=== PATIENT | male | born 1955 | race Caucasian/White ===

== ENCOUNTER → 2021-04-05 | Outpatient (CLI) | payer MEDICARE ==
[~2021-04-05] MED LIST: ALPR1TAB3 PO; ASPI81TA86 PO; ATEN50TA2 PO; ATOR40TA75 PO; MIRA3350 PO; OMEP40CA97 PO; PERC5TAB12 PO; ROBA750T4 PO; SPIR1TAB34 PO; TRIA2TA PO
--- NOTE | 2021-04-07 18:54 | HOLTMON ---
[facility] Test Date: 2021-04-05 Pat Name: MAYA KAPADIA Department: Room: - Gender: Male Voice Network Engineer: favian : 1955 Requested By: ELIZA NAIR Order Number: [id number] Reading MD: Nathaniel Masterson Interpretive Statements Normal sinus rhythm with a maximum heart of 100 bpm noted at 11:50:39 AM and a minimum rate of 43 bpm at 5:39:58 AM. No activity reported with the maximum heart rate. No pause. Very rare isolated PACs. No supraventricular run. No PVCs. Symptoms: Palpitations, no associated arrhythmias. Electronically Signed on 04-07-2021 18:54:11 EDT by Nathaniel Masterson
== END ==
LOC: M EKG 09:59
PROVIDERS: ATTEND Family Medicine
DX: R00.2 Palpitations (principal)

== ENCOUNTER → 2021-04-17 | Outpatient (CLI) | payer MEDICARE ==
[~2021-04-17] MED LIST changes: +ISOVUE-370 76% 100ML VIAL As Ordered ONE
--- NOTE | 2021-04-17 11:44 | REP ---
INDICATION: PULSITILE TINITIS W/ REYNA'S. Other visual disturbances. COMPARISON: Comparison CT study of the neck with IV contrast 22 September 2011.. TECHNIQUE: CT contrast dose: 100 ml of intravenous Isovue 370. CT technique: Helical scanning is acquired. 2 mm axial images are reformatted. Maximal intensity projection and multiplanar re-formation images are generated along with 3-D surface rendered color imaging which is viewed rotational. FINDINGS: There is good opacification of the arterial tree. The vertebral arteries are patent bilaterally although the right vertebral artery is quite a bit smaller than the left. Basilar artery is widely patent. Posterior cerebral and superior cerebellar arteries are patent. The distal internal carotid arteries are unremarkable and symmetric. No significant plaquing is seen. The right A1 segment is hypoplastic compared to the left but the anterior cerebral arteries are patent bilaterally. Middle cerebral arteries are unremarkable. There is no evidence of hawthorne aneurysm or arteriovenous malformation. The dural sinuses are patent. No venous abnormality is appreciated. The vertebral artery asymmetry is unchanged from the 2011 study. Maximum intensity projection and 3D surface rendered images show no additional abnormality. IMPRESSION: Left dominant asymmetric vertebral arteries. Otherwise unremarkable CT angiography of the brain. <Electronically signed by Vikash Gerardo > 04/17/21 [id number]
--- NOTE | 2021-04-17 13:47 | REP ---
INDICATION: PULSITILE TINITIS W/ REYNA'S COMPARISON: Comparison CT study of the neck is from September 22, 2011. TECHNIQUE: Contrast enhancement dose is 100 mL of intravenous Isovue 370. Helical scanning is acquired. 2 mm axial images are re-formatted. Coronal and sagittal MPR images are generated. Coronal and sagittal MIP and oblique MPR images are generated. 3D surface rendered images are generated and viewed rotationally. FINDINGS: There is good opacification of the arterial tree. Aortic arch is unremarkable. Great vessel origins are intact. Cervical vertebral arteries are patent bilaterally and essentially symmetric. Distally, the right vertebral artery is smaller. No focal stenosis is seen. The common carotid arteries are patent bilaterally. There is no significant atherosclerotic plaquing at the carotid bifurcations. No ICA narrowing is seen. The cervical and distal internal carotid arteries are unremarkable and symmetric. Maximum intensity projection and surface rendered 3D images show no additional finding. IMPRESSION: No high-grade stenosis or occlusion seen. <Electronically signed by Vikash Gerardo > 04/17/21 1546
== END ==
LOC: M RAD 09:16
PROVIDERS: ATTEND Physician Assistant Medical
DX: H93.A3 Pulsatile tinnitus, bilateral (principal); H53.8 Other visual disturbances; R51.9 Headache, unspecified
CPT/HCPCS: 70496; 70498; Q9967

== ENCOUNTER → 2021-04-22 | Outpatient (CLI) | payer MEDICARE ==
[~2021-04-22] MED LIST changes: -ISOVUE-370 76% 100ML VIAL As Ordered ONE
--- NOTE | 2021-04-25 00:45 | ECWPNPC ---
PATIENT NAME: MAYA KAPADIA : 1955 GENDER: MALE VISIT DATE: 04/22/2021 DISCHARGE DATE: 04/22/21 1350 VISIT LOCKED DATE TIME: PHYSICIAN: XI RODRIGUEZ RESOURCE: XI RODRIGUEZ REASON FOR APPOINTMENT 1. NECK PAIN HISTORY OF PRESENT ILLNESS DEPRESSION SCREENING: PHQ-2 (2015 EDITION) LITTLE INTEREST OR PLEASURE IN DOING THINGS?NOT AT ALL FEELING DOWN, DEPRESSED, OR HOPELESS?NOT AT ALL TOTAL SCORE0 GENERAL: PLEASANT 66-YEAR-OLD GENTLEMAN BEING SEEN TODAY PER REFERRAL OF [facility] FOR PERSISTENT NECK PAIN. PATIENT STATES HE SUFFERS FROM GENERALIZED BODY PAIN. REPORTS PERIODIC EPISODES OF SEVERE PAIN MAINLY AFTER HE HAS OVER DONE. HE IS QUITE ACTIVE. HE IS IN NO DISTRESS TODAY. SUFFERS FROM SEVERE ANXIETY. REPORTS HE WALKS ON A DAILY BASIS. HAD A SEVERE INCREASE IN NECK PAIN AFTER LIFTING 8 POUND WEIGHTS WHILE EXCERSISING A FEW WEEKS AGO. DENIES BOWEL INCONTINENCE OR URINARY INCONTINENCE. DENIES SUDDEN WEIGHT LOSS. DENIES RECENT INJURIES. STATES HE HAD MRIS OF HIS NECK AND LOW BACK BUT WE DON'T HAVE THOSE FOR REVIEW. - - -. FALL RISK SCREENING: SCREENING : NO FALLS REPORTED IN THE LAST YEAR , : NO FALLS REPORTED IN THE LAST YEAR. PAIN SCREENING: PATIENT HAS A COMPLAINT OF ACUTE OR CHRONIC PAIN :YES LOCATION OF PAIN:NECK INTENSITY OF PAIN (SCALE OF 1 TO 10):3 WHAT DOES YOUR PAIN FEEL LIKE:TENDER, SORE DURATION:CONTINOUS, CONSTANT, ALL DAY PAIN IS INCREASED BY:ACTIVITIES LIFTING THINGS PAIN IS DECREASED BY:OTHERS TENS UNIT, HEAT AND ICE NURSING NOTE: - - -. PAIN CENTER INTAKE QUESTIONS: DO YOU HAVE A HISTORY OF MRSA? :NO DO YOU TAKE A BLOOD THINNERS? :NO DO YOU HAVE ANY BLEEDING DISORDERS? :NO ANY NEW NUMBNESS OR WEAKNESS IN YOUR LEGS OR ARMS? :NO NUMBESS IN LEFT HANDS? FINGER AND LEFT LEG IN TOES ANY PACEMAKER,DEFIBRILLATOR, OR DORSAL COLUMN STIMULATOR? :NO DO YOU HAVE ANY RASHES OR OPEN SORES? :NO ARE YOU ALLERGIC TO IV DYE? :NO ARE YOU DIABETIC? :NO PRE DIABETIC ANY NEW PROBLEMS WITH YOUR MEDICATIONS? :NO HAVE YOU RECEIVED A VACCINE IN THE PAST 30 DAYS? :NO 2ND COVID 01/19/2021 DO YOU PLAN TO RECEIVE A VACCINE IN THE NEXT 21 DAYS? :NO DO YOU NEED ANY PRESCRIPTION? :NO DO YOU TAKE ANY IMMUNOSUPPRESSIVE MEDICATIONS? :NO IS THERE A CHANCE YOU COULD BE ? :NO ARE YOU BREAST FEEDING? :NO CURRENT MEDICATIONS TAKING LIPITOR 30MG ORAL THREE DAYS A WEEK TAKING AMITRIPTYLINE HCL 25 MG TABLET 1 TABLET AT BEDTIME ORALLY ONCE A DAY TAKING XANAX 1 MG TABLET 1 TABLET ORALLY TWICE A DAY, NOTES: PRN TAKING ATENOLOL 50 MG TABLET 1 TABLET ORALLY ONCE A DAY TAKING PRILOSEC OTC 20 MG TABLET DELAYED RELEASE 1 TABLET 30 MINUTES BEFORE MORNING MEAL ORALLY ONCE A DAY TAKING GABAPENTIN 100 MG CAPSULE 1 CAPSULE ORALLY ONCE A DAY TAKING SPIRONOLACTONE-HCTZ 25-25 MG TABLET 1 TABLET ORALLY ONCE A DAY TAKING TYLENOL 1000MG 1 TAB ORALLY TID TAKING CLARITIN 10 MG TABLET 1 TABLET ORALLY ONCE A DAY TAKING PERPHENAZINE 2 MG TABLET 1 TABLET ORALLY FOUR TIMES A DAY TAKING ROBAXIN-750 750 MG TABLET 1 TABLET ORALLY EVERY 4 HRS TAKING VITAMIN D 25 MCG (1000 UT) TABLET 1 TABLET ORALLY ONCE A DAY TAKING VITAMIN C 500 MG CAPSULE DIRECTED ORALLY TAKING MAGNESIUM GLYCINATE PLUS MEDICATION LIST REVIEWED AND RECONCILED WITH THE PATIENT PAST MEDICAL HISTORY PULSATILE TINNITUS CHRONIC NECK PAIN OCCIPITAL PAIN BILATERAL SHOULDER PAIN CHRONIC NUMBNESS IN FINGERS LEFT CHEST PAIN- DYSPENA WITH PANIC LUMBAR DDD ANXIETY AGORAPHOBIA ALLERGIES PENICILLIN: HIVES - SIDE EFFECTS L ARGININE: HEADACHE - SIDE EFFECTS SURGICAL HISTORY TONSILSL REMOVED 20 YEARS AGO TESICLES REMOVED 20 YEARS AGO FAMILY HISTORY FATHER: 91 YRS MOTHER: ALIVE 93 YRS SIBLINGS: ALIVE DAUGHTER(S): ALIVE 1 BROTHER(S) , 1 SISTER(S) - HEALTHY. 1DAUGHTER(S) - HEALTHY. SOCIAL HISTORY GENERAL: TOBACCO USE ARE YOU A:FORMER SMOKER 40 YEARS LATEX QUESTIONNAIRE LATEX ALLERGY : HAVE YOU EVER DEVELOPED ANY TYPE OF REACTION AFTER HANDLING LATEX PRODUCTS SUCH RUBBER GLOVES, CONDOMS, DIAPHRAGMS, BALLOONS, SOCKS, OR UNDERWEAR?NO LATEX ALLERGY : HAVE YOU EVER DEVELOPED ANY TYPE OF REACTION DURING OR AFTER DENTAL APPOINTMENT, VAGINAL/RECTAL EXAMINATION, SURGICAL PROCEDURE, OR ANY OTHER EXPOSURE?NO LATEX RISK : HAVE YOU EVER HAD ANY DIFFICULTY BREATHING OR HIVES AFTER EATING OR HANDLING ANY FRUITS, OR VEGETABLES; SUCH KIWI, BANANAS, STONE FRUITS, OR CHESTNUTSNO LATEX RISK : DO YOU HAVE A PREVIOUS PERSONAL HISTORY OF MORE THAN NINE SURGERIES, SPINA BIFIDA, OR REPEATED CATHERIZATIONS? NO LATEX RISK : ARE YOU FREQUENTLY EXPOSED TO LATEX PRODUCTS IN YOUR OCCUPATION?NO DATE ASKED : 04/22/2021 ALCOHOL USE: NO. RECREATIONAL DRUG USE DRUG USE?NO LANGUAGE LANGUAGES SPOKEN:JAMA[place] LEARNING BARRIERS / SPECIAL NEEDS BARRIERS TO LEARNING?NO HEARING IMPAIRED?NO LOST HEARING IN THE LEFT EARING VISION IMPAIRED?YES :CORRECTIVE LENSES COGNITIVELY IMPAIRED?NO LEARNING PREFERENCES?YES :DEMONSTRATION/VERBAL INSTRUCTION LEARNING CAPABILITIES PRESENT?YES EMOTIONAL BARRIERS?NO SPECIAL DEVICES?YES :CANE NEEDED CONTROL AREA OPERATOR NEEDED?NO HOSPITALIZATION/MAJOR DIAGNOSTIC PROCEDURE BACK PAIN SPEND 2 DAYS 6 YEARS AGO REVIEW OF SYSTEMS CONSTITUTIONAL: ANY RECENT FEVER NO . CHILLS NO . WEIGHT CHANGE OF UNKNOWN REASONS NO . GASTROENTEROLOGY: NEW UNEXPLAINABLE CHANGES IN BOWEL CONTROL NO . CONSTIPATION NO . GENITOURINARY: ANY NEW CHANGE IN BLADDER CONTROL? NO . NEUROLOGY: NEW ONSET DIZZINESS OR NEUROLOGICAL CHANGES NOT MENTIONED NO . NEW NUMBNESS OR PAIN PATTERNS NOT MENTIONED AND PERTINENT TO TODAY'S VISIT NO . CARDIOLOGY: NEW CHEST PRESSURE NO . PATIENT DENIES NO . RESPIRATORY: UNEXPLAINABLE COUGH NO . NEW SHORTNESS OF BREATH NO . VITAL SIGNS WT 291 LBS, HT 6'1, BMI 39.46 INDEX, BP 140/73 MM HG, HR 50 /MIN, RR 18 /MIN, TEMP 98.2 F, OXYGEN SAT % 97, SAFE IN ENV? (Y/N) YEST.ERIKA DAVISON. EXAMINATION GENERAL EXAMINATION: GENERALNO ACUTE DISTRESS, WELL NOURISHED AND HYDRATED. PSYCHAPPROPRIATE MOOD AND AFFECT . FACE:UNREMARKABLE. NECK:NO LYMPHADENOPATHY, SUPPLE. LUNGS:CLEAR TO AUSCULTATION BILATERALLY, NO WHEEZES, RHONCHI, RALES. HEART:NO MURMURS, REGULAR RATE AND RHYTHM. MUSCULOSKELETAL:NORMAL RANGE OF MOTION. MUSCLE STRENGTH TESTING 5/5 BILATERAL UPPER/LOWER EXTREMITIES. THORACIC SPINE:+ FOR PAIN WITH PALPATION OF THORACIC SPINE. + FOR PAIN WITH PALPATION OF THORACIC PARASPINAL. CERVICAL:+ FOR PAIN WITH PALPATION OF CERVICAL SPINE. + FOR PAIN WITH PALPATION OF CERVICAL PARASPINALS. NEGATIVE FOR PAIN WITH PALPATION OF TRAPEZIUS BILAT. ASSESSMENTS MYALGIA, OTHER SITE - M79.18 (PRIMARY) GENERALIZED JOINT PAIN - M25.50 TREATMENT MYALGIA, OTHER SITE START MELOXICAM TABLET, 7.5 MG, 1 TABLET, ORALLY, BID, 30 DAY(S), 60 TABLET, REFILLS 2 NOTES: ISTOP REGISTRY REVIEWED AND DEMONSTRATES COMPLLIANCE. PRINTED INFORMATION ON NEW MEDICATION FOR PATIENT JESSE SAMAN. PROCEDURE CODES [id number] ESTABILISHED PATIENT [facility] FACILITY CHARGE DISPOSITION & COMMUNICATION FOLLOW UP SIGN RELEASE AND GET MRI IMAGING NECK,THORACIC AND LUMBAR, 2 MONTHS (REASON: REVIEW MRI'S FROM [facility]/F/U ON [facility]) ELECTRONICALLY SIGNED BY KARSTEN VILLALOBOS ON 04/24/2021 AT 09:26 AM EDT DISCLAIMER : THIS IS A VISIT SUMMARY EXTRACTED FROM THE [employer] CHART. IT IS NOT A COPY OF THE [employer] PROGRESS NOTE. HARISD
== END ==
LOC: M PAIN 13:00
PROVIDERS: ATTEND Nurse Practitioner Family
DX: M79.18 Myalgia, other site (principal); M25.551 Pain in right hip; H93.A9 Pulsatile tinnitus, unspecified ear; M54.2 Cervicalgia; M25.552 Pain in left hip; R20.2 Paresthesia of skin; M51.36 Other intervertebral disc degeneration, lumbar region; F40.00 Agoraphobia, unspecified; F41.9 Anxiety disorder, unspecified; Z87.891 Personal history of nicotine dependence; Z79.899 Other long term (current) drug therapy; Z88.0 Allergy status to penicillin; Z88.8 Allergy status to other drugs, medicaments and biological substances

== ENCOUNTER 2021-10-28 10:09 | Emergency (ER) | payer MEDICARE ==
[~2021-10-28] VITALS: Ht 185.4 cm; Wt 129.6 kg
[~2021-10-28 10:09] MED LIST changes: +OMEP40CA4 PO; -OMEP40CA97 PO
[2021-10-28] MEDS ORDERED: CLAR10CA3 PO (10:40)
[2021-10-28] MEDS ORDERED: LANS15CA PO (10:40)
[2021-10-28] MEDS ORDERED: AMIT25TA17 PO (10:40)
[2021-10-28] MEDS ORDERED: PERP2TAB PO (10:40)
[2021-10-28] MEDS ORDERED: ALLE4TAB11 PO (10:40)
[2021-10-28 11:50] LABS: BASO % 0.6 % (0.0-1.0); EOS # 0.1 10^3/uL (0.0-0.5); EOS % 2.4 % (0.0-3.0); HEMATOCRIT 43.3 % (42.0-52.0); HEMOGLOBIN 13.8 g/dl (13.5-17.5); LYMPH # 1.7 10^3/uL (1.5-5.0); LYMPH % 30.9 % (24.0-44.0); MEAN CORPUSCULAR HGB CONC 31.9 g/dl (32.0-36.5); MEAN CORPUSCULAR VOLUME 81.7 fl (80.0-96.0); MONO # 0.5 10^3/uL (0.0-0.8); MONO % 8.9 % (2.0-8.0); NEUTROPHILS # 3.1 10^3/uL (1.5-8.5); NEUTROPHILS % 56.8 % (36.0-66.0); PLATELET COUNT, AUTOMATED 143 10^3/uL (150-450); WHITE BLOOD COUNT 5.4 10^3/uL (4.0-10.0)
[2021-10-28 12:18] LABS: ALBUMIN 3.5 GM/DL (3.2-5.2); BILIRUBIN,TOTAL 0.4 MG/DL (0.2-1.0); CALCIUM LEVEL 8.5 MG/DL (8.8-10.2); CREATININE FOR GFR 1.32 MG/DL (0.70-1.30); GLOMERULAR FILTRATION RATE 57.8 (>49); POTASSIUM SERUM 3.7 MEQ/L (3.5-5.1); TOTAL PROTEIN 6.2 GM/DL (6.4-8.2)
[2021-10-28 14:59] LABS: CK-MB VALUE MASS < 1.0 NG/ML (<3.6); CPK CREATINE PHOSPHOKINASE 84 U/L (39-308); MB/CK RELATIVE INDEX 1.19 (< OR =4)
[2021-10-28 15:23] VITALS: BP 134/83
== END 2021-10-28 15:24 | disposition home or self-care (01) ==
LOC: M ED 10:09
DX: R42 Dizziness and giddiness (principal); R55 Syncope and collapse; S09.90XA Unspecified injury of head, initial encounter; W01.0XXA Fall on same level from slipping, tripping and stumbling without subsequent striking against object, initial encounter; Y92.9 Unspecified place or not applicable; Y93.9 Activity, unspecified; Y99.9 Unspecified external cause status; I10 Essential (primary) hypertension; Z79.899 Other long term (current) drug therapy

== ENCOUNTER → 2022-09-22 | Outpatient (CLI) | payer MEDICARE ==
[~2022-09-22] MED LIST changes: +ALLE4TAB11 PO; +AMIT25TA17 PO; +CLAR10CA3 PO; +LANS15CA PO; +PERP2TAB20 PO
== END ==
LOC: M RAD 07:26
PROVIDERS: ATTEND Pain Medicine Interventional Pain Medicine
DX: M47.817 Spondylosis without myelopathy or radiculopathy, lumbosacral region (principal)

== ENCOUNTER → 2022-10-10 | Outpatient (CLI) | payer MEDICARE ==
[~2022-10-10] MED LIST changes: +PROHANCE 279.3MG/ML 15ML VIAL As Ordered ONE; +PROHANCE 279.3MG/ML 5ML VIAL As Ordered ONE
== END ==
LOC: M RAD 09:43
PROVIDERS: ATTEND Nurse Practitioner Family
DX: G35 Multiple sclerosis (principal)
CPT/HCPCS: 70553; 76775; A9576

== ENCOUNTER → 2022-10-10 | Outpatient (CLI) | payer MEDICARE ==
[~2022-10-10] MED LIST changes: -PROHANCE 279.3MG/ML 15ML VIAL As Ordered ONE; -PROHANCE 279.3MG/ML 5ML VIAL As Ordered ONE
== END ==
LOC: M RAD 09:43
PROVIDERS: ATTEND Family Medicine
DX: N28.1 Cyst of kidney, acquired (principal)

== ENCOUNTER → 2022-11-10 | Outpatient (CLI) | payer MEDICARE ==
[2022-11-10 17:13] LABS: BLOOD UREA NITROGEN 13 MG/DL (9-23); CARBON DIOXIDE LEVEL 31 MMOL/L (20-31); CHLORIDE LEVEL 101 MMOL/L (98-107); CREATININE FOR GFR 1.15 MG/DL (0.70-1.30); GLOMERULAR FILTRATION RATE > 60.0 (>49); GLUCOSE, FASTING 113 MG/DL (74-106); POTASSIUM SERUM 4.2 MMOL/L (3.5-5.1); SODIUM LEVEL 139 MMOL/L (136-145)
== END ==
LOC: M WUC 14:03
PROVIDERS: ATTEND Family Medicine
DX: I10 Essential (primary) hypertension (principal)

== ENCOUNTER → 2022-11-19 | Outpatient (CLI) | payer MEDICARE ==
[~2022-11-19] MED LIST changes: +PROHANCE 279.3MG/ML 15ML VIAL As Ordered ONE; +PROHANCE 279.3MG/ML 5ML VIAL As Ordered ONE
== END ==
LOC: M RAD 08:34
PROVIDERS: ATTEND Family Medicine
DX: N28.1 Cyst of kidney, acquired (principal)
CPT/HCPCS: 74183; A9576

== ENCOUNTER → 2022-12-12 | Outpatient (CLI) | payer MEDICARE ==
[~2022-12-12] MED LIST changes: -PROHANCE 279.3MG/ML 15ML VIAL As Ordered ONE; -PROHANCE 279.3MG/ML 5ML VIAL As Ordered ONE
== END ==
LOC: M WHC 12:12
PROVIDERS: ATTEND Family Medicine
DX: M79.604 Pain in right leg (principal)

== ENCOUNTER → 2023-01-06 | Outpatient (CLI) | payer MEDICARE ==
[~2023-01-06] MED LIST changes: +ACET-897 PO; +ASPI325T55 PO; +CO Q10CA PO; +FLON1SPR; +METH-1165 PO; +OCUV1CAP4 PO; +PROBCAP14 PO; +VITA200048 PO; +VITMTA PO
[2023-01-06 08:37] LABS: HEMATOCRIT 42.7 % (42.0-52.0); HEMOGLOBIN 13.5 g/dl (13.5-17.5); MEAN CORPUSCULAR HEMOGLOBIN 26.2 pg (27.0-33.0); MEAN CORPUSCULAR HGB CONC 31.6 g/dl (32.0-36.5); MEAN CORPUSCULAR VOLUME 82.8 fl (80.0-96.0); PLATELET COUNT, AUTOMATED 152 10^3/uL (150-450); RED BLOOD COUNT 5.16 10^6/uL (4.30-6.10); WHITE BLOOD COUNT 4.9 10^3/uL (4.0-10.0)
[2023-01-06 08:37] LABS: APPEARANCE, URINE MANUAL CLEAR (CLEAR); COLOR, URINE MANUAL YELLOW (YELLOW)
[2023-01-06 08:38] LABS: BILIRUBIN, URINE MANUAL NEGATIVE (NEGATIVE); BLOOD URINE MANUAL NEGATIVE (NEGATIVE); GLUCOSE, URINE (UA) MANUAL NEGATIVE (NEGATIVE); KETONE, URINE MANUAL NEGATIVE (NEGATIVE); LEUKOCYTE ESTERASE, URINE MAN NEGATIVE (NEGATIVE); NITRITE, URINE MANUAL NEGATIVE (NEGATIVE); PH,URINE MAN 5.5 UNITS (5.0 - 7.0); PROTEIN, URINE MANUAL NEGATIVE (NEGATIVE); UROBILINOGEN, URINE MANUAL NORMAL (NORMAL)
[2023-01-06 08:46] LABS: INR 0.98; PROTHROMBIN TIME 13.2 SECONDS (12.5-14.5)
[2023-01-06 08:47] LABS: PARTIAL THROMBOPLASTIN TIME 30.5 SECONDS (24.8-34.2)
[2023-01-06 08:57] LABS: BILIRUBIN,TOTAL 0.5 MG/DL (0.3-1.2); CALCIUM LEVEL 8.9 MG/DL (8.3-10.6); CREATININE FOR GFR 1.31 MG/DL (0.70-1.30); GLOMERULAR FILTRATION RATE 58.1 (>49); POTASSIUM SERUM 3.8 MMOL/L (3.5-5.1); TOTAL PROTEIN 6.3 G/DL (5.7-8.2)
== END ==
LOC: M RAD 07:22
PROVIDERS: ATTEND Nurse Practitioner Women's Health
DX: Z01.818 Encounter for other preprocedural examination (principal); N28.89 Other specified disorders of kidney and ureter

== ENCOUNTER → 2023-01-11 | Outpatient (CLI) | payer MEDICARE | LOC: M LABSMTC 09:43 | PROVIDERS: ATTEND Anesthesiology | DX: Z01.812 Encounter for preprocedural laboratory examination (principal) ==

== ENCOUNTER 2023-01-15 07:01 | Inpatient (IN) | payer MEDICARE ==
[~2023-01-15] VITALS: Ht 185.4 cm; Wt 123.4 kg
[2023-01-15] VITALS (7 sets, daily range): BP systolic 110–138; BP diastolic 63–68
[~2023-01-15 07:01] MED LIST changes: +CIPROFLOXACIN 400 MG in IV 1 EA IV ONE
[2023-01-15] MEDS ORDERED: LR 1,000 ML IV SCH (07:15)
[2023-01-15] MEDS ORDERED: HYDROmorphone HCL 2MG/ML 1ML VIAL As Ordered ONE (08:17)
[2023-01-15] MEDS ORDERED: fentaNYL 100 MCG/2 ML INJECTION As Ordered ONE (08:17)
[2023-01-15] MEDS ORDERED: MIDAZOLAM INJ 2MG/2ML VIAL As Ordered ONE (08:17)
[2023-01-15] MEDS ORDERED: propofoL 200 MG/20 ML VIAL As Ordered ONE ×2 (08:18→08:21)
[2023-01-15] MEDS ORDERED: ROCURONIUM BROMIDE 50MG/5ML VIAL As Ordered ONE ×3 (08:18→11:10)
[2023-01-15] MEDS ORDERED: LIDOCAINE 2% 100MG/5ML SDV (FOR ANES.) As Ordered ONE (08:18)
[2023-01-15] MEDS ORDERED: ONDANSETRON 4MG 2ML VIAL As Ordered ONE (08:18)
[2023-01-15] MEDS ORDERED: ACETAMINOPHEN 1000MG 100ML IV BAG As Ordered ONE (08:18)
[2023-01-15] MEDS ORDERED: PERCOCET 5MG/325MG TAB PO PRN ×2 (08:25)
[2023-01-15] MEDS ORDERED: ONDANSETRON 4MG 2ML VIAL IV PRN ×2 (08:25→13:15)
[2023-01-15] MEDS: NS 1,000 ML IV SCH ×2 (08:25→19:03)
[2023-01-15] MEDS ORDERED: BUPIVACAINE HCL 0.25% 30ML VIAL As Ordered ONE (08:28)
[2023-01-15] MEDS ORDERED: LIDOCAINE 1% SDV 30ML VIAL As Ordered ONE (08:28)
[2023-01-15] MEDS ORDERED: ceFAZolin SOD 1 GM in D5W MINI-BAG PLUS 50 ML IV ONE (09:00)
[2023-01-15] MEDS ORDERED: ceFAZolin SOD 2 GM in IV 1 EA IV ONE (09:00)
[2023-01-15] MEDS ORDERED: ePHEDrine SULFATE 25 MG/5 ML(5MG/ML) SYRINGE As Ordered ONE ×2 (09:36→10:06)
[2023-01-15] MEDS ORDERED: PHENYLephrine 500MCG 5ML (100MCG/ML) SYRINGE As Ordered ONE (10:06)
[2023-01-15] MEDS ORDERED: SUGAMMADEX SODIUM 500 MG/5 ML VIAL (BRIDION) As Ordered ONE (10:07)
[2023-01-15] MEDS ORDERED: MORPHINE 2 MG/ML 1ML VIAL IV PRN (13:15)
[2023-01-15] MEDS: fentaNYL 100 MCG/2 ML INJECTION IV PRN ×4 (13:48→14:07)
[2023-01-15 13:54] LABS: HEMATOCRIT 41.9 % (42.0-52.0); HEMOGLOBIN 13.3 g/dl (13.5-17.5); MEAN CORPUSCULAR HEMOGLOBIN 26.4 pg (27.0-33.0); MEAN CORPUSCULAR HGB CONC 31.7 g/dl (32.0-36.5); MEAN CORPUSCULAR VOLUME 83.1 fl (80.0-96.0); PLATELET COUNT, AUTOMATED 144 10^3/uL (150-450); RED BLOOD COUNT 5.04 10^6/uL (4.30-6.10); WHITE BLOOD COUNT 7.3 10^3/uL (4.0-10.0)
[2023-01-15] MEDS ORDERED: HYDROMORPHONE HCL 0.5 MG/ 0.5 ML SYRINGE IV PRN (14:05)
[2023-01-15] MEDS: oxyCODONE 5MG TAB PO PRN ×2 (14:07→14:45)
[2023-01-15] MEDS: LORATADINE 10 MG TAB PO SCH (15:26)
[2023-01-15 15:40] LABS: CALCIUM LEVEL 8.6 MG/DL (8.3-10.6); CREATININE FOR GFR 1.33 MG/DL (0.70-1.30); GLOMERULAR FILTRATION RATE 57.1 (>49); POTASSIUM SERUM 3.8 MMOL/L (3.5-5.1)
[2023-01-15] MEDS: ceFAZolin SOD 1 GM in D5W MINI-BAG PLUS 50 ML IV SCH (16:58)
[2023-01-15] MEDS: ACETAMINOPHEN TAB 650MG DOSE (2X325MG) PO PRN ×2 (17:55→22:56)
[2023-01-15] MEDS ORDERED: METOCLOPRAMIDE INJ 10MG/2ML VIAL IV PRN (18:50)
[2023-01-15] MEDS ORDERED: HOME MED LIST COMPLETE! XX SCH (19:15)
[2023-01-15] MEDS: DOCUSATE SODIUM 100MG CAPSULE PO SCH (20:19)
[2023-01-15] MEDS: atenoloL 25 MG TAB PO SCH (20:20)
[2023-01-15] MEDS ORDERED: PERPHENAZINE 2 MG TAB PO SCH (21:00)
[2023-01-15] MEDS ORDERED: AMITRIPTYLINE 50 MG TAB PO SCH (21:00)
[2023-01-15] MEDS: ALPRAZolam 0.5 MG TAB PO SCH (21:33)
[2023-01-16 00:15] VITALS: BP 126/70
[2023-01-16] MEDS: ceFAZolin SOD 1 GM in D5W MINI-BAG PLUS 50 ML IV SCH (02:43)
[2023-01-16] MEDS: ACETAMINOPHEN TAB 650MG DOSE (2X325MG) PO PRN ×2 (02:45→06:32)
[2023-01-16] MEDS: NS 1,000 ML IV SCH (02:45)
[2023-01-16 04:15] VITALS: BP 124/71
[2023-01-16] MEDS ORDERED: HEPARIN SOD (PORCINE) 5000UNITS/ML 1ML VIAL/SYRINGE SC SCH (06:00)
[2023-01-16 06:03] LABS: HEMATOCRIT 39.7 % (42.0-52.0); HEMOGLOBIN 12.6 g/dl (13.5-17.5); MEAN CORPUSCULAR HEMOGLOBIN 26.1 pg (27.0-33.0); MEAN CORPUSCULAR HGB CONC 31.7 g/dl (32.0-36.5); MEAN CORPUSCULAR VOLUME 82.4 fl (80.0-96.0); PLATELET COUNT, AUTOMATED 151 10^3/uL (150-450); RED BLOOD COUNT 4.82 10^6/uL (4.30-6.10); WHITE BLOOD COUNT 9.2 10^3/uL (4.0-10.0)
[2023-01-16 06:29] LABS: CALCIUM LEVEL 8.5 MG/DL (8.3-10.6); CREATININE FOR GFR 1.72 MG/DL (0.70-1.30); GLOMERULAR FILTRATION RATE 42.4 (>49); POTASSIUM SERUM 4.1 MMOL/L (3.5-5.1)
[2023-01-16 06:57] VITALS: BP 138/64
[2023-01-16] MEDS: LORATADINE 10 MG TAB PO SCH (08:08)
[2023-01-16 08:09] VITALS: BP 120/70
[2023-01-16] MEDS: atenoloL 25 MG TAB PO SCH (08:09)
[2023-01-16] MEDS: ALPRAZolam 0.5 MG TAB PO SCH (08:09)
[2023-01-16] MEDS: DOCUSATE SODIUM 100MG CAPSULE PO SCH (08:09)
[2023-01-16] MEDS ORDERED: OMEPRAZOLE 20MG CAP PO SCH (09:00)
[2023-01-16] MEDS ORDERED: SPIRONOLACTONE 25 MG TAB PO ONE (09:00)
[2023-01-16 10:00] VITALS: BP 131/80
[2023-01-16] MEDS ORDERED: PERCOCET PO (11:00)
[2023-01-16] MEDS ORDERED: COLA100C5 PO (11:00)
[2023-01-16] MEDS ORDERED: ATORVASTATIN 20 MG TAB PO SCH (21:00)
== END 2023-01-16 13:31 | disposition home or self-care (01) | DRG 658 ==
LOC: M OR 07:01 → M MSPAV 15:12
PROVIDERS: ADMIT Urology; ATTEND Urology
PROC: 8E0W4CZ Robotic Assisted Procedure of Trunk Region, Percutaneous Endoscopic Approach (ICD-10-PCS; 2023-01-15)
PROC: 0TT04ZZ Resection of Right Kidney, Percutaneous Endoscopic Approach (ICD-10-PCS; principal; 2023-01-15 08:30)
DX: C64.1 Malignant neoplasm of right kidney, except renal pelvis (principal); I10 Essential (primary) hypertension; E78.5 Hyperlipidemia, unspecified; R73.01 Impaired fasting glucose; F40.01 Agoraphobia with panic disorder; K21.9 Gastro-esophageal reflux disease without esophagitis; K44.9 Diaphragmatic hernia without obstruction or gangrene; E66.9 Obesity, unspecified; M51.16 Intervertebral disc disorders with radiculopathy, lumbar region; Z87.891 Personal history of nicotine dependence; Z79.899 Other long term (current) drug therapy; Z88.0 Allergy status to penicillin; Z68.35 Body mass index [BMI] 35.0-35.9, adult

== ENCOUNTER → 2023-01-29 | Outpatient (CLI) | payer MEDICARE ==
[~2023-01-29] MED LIST changes: -CIPROFLOXACIN 400 MG in IV 1 EA IV ONE; +COLA100C5 PO; +PERCOCET PO
[2023-01-29 11:10] LABS: HEMATOCRIT 43.1 % (42.0-52.0); HEMOGLOBIN 13.3 g/dl (13.5-17.5); MEAN CORPUSCULAR HEMOGLOBIN 26.1 pg (27.0-33.0); MEAN CORPUSCULAR HGB CONC 30.9 g/dl (32.0-36.5); MEAN CORPUSCULAR VOLUME 84.5 fl (80.0-96.0); PLATELET COUNT, AUTOMATED 205 10^3/uL (150-450); WHITE BLOOD COUNT 6.4 10^3/uL (4.0-10.0)
[2023-01-29 11:34] LABS: CALCIUM LEVEL 8.9 MG/DL (8.3-10.6); CREATININE FOR GFR 1.67 MG/DL (0.70-1.30); GLOMERULAR FILTRATION RATE 43.9 (>49); POTASSIUM SERUM 4.5 MMOL/L (3.5-5.1)
== END ==
LOC: M PLALAB 09:10
PROVIDERS: ATTEND Urology
DX: C64.1 Malignant neoplasm of right kidney, except renal pelvis (principal); Z90.5 Acquired absence of kidney

== ENCOUNTER → 2023-02-17 | Outpatient (CLI) | payer MEDICARE ==
[2023-02-17 11:27] LABS: ALBUMIN 3.8 G/DL (3.2-5.2); CALCIUM LEVEL 9.3 MG/DL (8.3-10.6); CREATININE FOR GFR 1.77 MG/DL (0.70-1.30); GLOMERULAR FILTRATION RATE 40.9 (>49); PHOSPHORUS LEVEL 3.2 MG/DL (2.4-5.1); POTASSIUM SERUM 4.6 MMOL/L (3.5-5.1)
== END ==
LOC: M PLALAB 08:45
PROVIDERS: ATTEND Family Medicine
DX: N18.9 Chronic kidney disease, unspecified (principal)

== ENCOUNTER → 2024-05-30 | Outpatient (CLI) | payer MEDICARE ==
[~2024-05-30] MED LIST changes: -AMIT25TA17 PO; +AMIT25TA19 PO
[2024-05-30 15:04] LABS: BASO % 0.6 % (0.0-1.0); EOS # 0.2 10^3/uL (0.0-0.5); EOS % 3.5 % (0.0-3.0); HEMATOCRIT 43.2 % (42.0-52.0); HEMOGLOBIN 13.4 g/dl (13.5-17.5); LYMPH # 1.5 10^3/uL (1.5-5.0); LYMPH % 30.5 % (24.0-44.0); MEAN CORPUSCULAR HEMOGLOBIN 26.3 pg (27.0-33.0); MEAN CORPUSCULAR VOLUME 84.9 fl (80.0-96.0); MONO # 0.4 10^3/uL (0.0-0.8); MONO % 8.8 % (2.0-8.0); NEUTROPHILS # 2.7 10^3/uL (1.5-8.5); PLATELET COUNT, AUTOMATED 137 10^3/uL (150-450); RED BLOOD COUNT 5.09 10^6/uL (4.30-6.10); WHITE BLOOD COUNT 4.9 10^3/uL (4.0-10.0)
[2024-05-30 15:08] LABS: HEMOGLOBIN A1c 6.1 % (4.0-6.0)
[2024-05-30 15:26] LABS: PROSTATIC SPECIFIC AG MONITOR 0.95 NG/ML (< 4.00)
[2024-05-30 15:28] LABS: ALBUMIN 3.7 G/DL (3.2-5.2); BILIRUBIN,TOTAL 0.4 MG/DL (0.3-1.2); CALCIUM LEVEL 8.7 MG/DL (8.3-10.6); CHOLESTEROL RISK RATIO 5.55 (<5); CREATININE FOR GFR 1.65 MG/DL (0.70-1.30); GLOMERULAR FILTRATION RATE 44.3 (>49); HDL CHOLESTEROL 31.5 MG/DL (>40); LDL CHOLESTEROL 103.7 MG/DL (<100); NON-HDL-C 143.5 MG/DL; POTASSIUM SERUM 4.4 MMOL/L (3.5-5.1); TOTAL PROTEIN 6.2 G/DL (5.7-8.2)
== END ==
LOC: M WUC 10:05
PROVIDERS: ATTEND Family Medicine
DX: Z00.00 Encounter for general adult medical examination without abnormal findings (principal); Z12.5 Encounter for screening for malignant neoplasm of prostate; R73.01 Impaired fasting glucose; E78.00 Pure hypercholesterolemia, unspecified; R97.20 Elevated prostate specific antigen [PSA]

== ENCOUNTER → 2024-09-06 | Outpatient (CLI) | payer MEDICARE | LOC: M PLAIMG 12:49 | PROVIDERS: ATTEND Urology | DX: C64.1 Malignant neoplasm of right kidney, except renal pelvis (principal); Z90.5 Acquired absence of kidney ==

== ENCOUNTER → 2024-10-17 | Outpatient (CLI) | payer MEDICARE ==
[~2024-10-17] MED LIST changes: +MAGN250T7 PO; +RIBO100T3 PO
== END ==
LOC: M PLARAD 14:12
PROVIDERS: ATTEND Urology
DX: C64.1 Malignant neoplasm of right kidney, except renal pelvis (principal)
CPT/HCPCS: 78815; A9552

== ENCOUNTER → 2024-11-14 | Outpatient (CLI) | payer MEDICARE ==
[~2024-11-14] VITALS: Ht 185.4 cm; Wt 125.7 kg
[~2024-11-14] MED LIST changes: +ATEN25TA PO; +MORP1SOL4 PO
[2024-11-14 13:04] VITALS: BP 137/91; O2SAT 98
== END ==
LOC: M PAL 12:46
PROVIDERS: ATTEND Family Medicine
DX: Z51.5 Encounter for palliative care (principal); C64.9 Malignant neoplasm of unspecified kidney, except renal pelvis; Z66 Do not resuscitate; Z79.51 Long term (current) use of inhaled steroids; Z79.899 Other long term (current) drug therapy; Z90.5 Acquired absence of kidney; Z88.0 Allergy status to penicillin; Z88.1 Allergy status to other antibiotic agents; R91.8 Other nonspecific abnormal finding of lung field; R59.1 Generalized enlarged lymph nodes

== ENCOUNTER → 2024-12-15 | Outpatient (CLI) | payer MEDICARE ==
[~2024-12-15] VITALS: Ht 185.4 cm; Wt 126.0 kg
[2024-12-15 14:39] VITALS: BP 156/106; O2SAT 99
== END ==
LOC: M PAL 14:23
PROVIDERS: ATTEND Family Medicine
DX: Z51.5 Encounter for palliative care (principal); R52 Pain, unspecified; C64.9 Malignant neoplasm of unspecified kidney, except renal pelvis; R59.0 Localized enlarged lymph nodes; R91.8 Other nonspecific abnormal finding of lung field; Z66 Do not resuscitate; R06.02 Shortness of breath; Z79.51 Long term (current) use of inhaled steroids; Z79.899 Other long term (current) drug therapy; Z88.0 Allergy status to penicillin; Z88.1 Allergy status to other antibiotic agents

== ENCOUNTER → 2025-02-21 | Outpatient (CLI) | payer MEDICARE ==
[~2025-02-21] VITALS: Ht 185.4 cm; Wt 124.2 kg
[~2025-02-21] MED LIST changes: +CYMB1CAP5 PO
[2025-02-21 09:21] VITALS: BP 174/104; O2SAT 99
== END ==
LOC: M PAL 09:11
PROVIDERS: ATTEND Physician Assistant
DX: Z51.5 Encounter for palliative care (principal); C64.9 Malignant neoplasm of unspecified kidney, except renal pelvis; Z66 Do not resuscitate; C77.1 Secondary and unspecified malignant neoplasm of intrathoracic lymph nodes; C77.2 Secondary and unspecified malignant neoplasm of intra-abdominal lymph nodes; C48.0 Malignant neoplasm of retroperitoneum; Z79.891 Long term (current) use of opiate analgesic; F41.1 Generalized anxiety disorder; Z79.899 Other long term (current) drug therapy; Z88.0 Allergy status to penicillin; Z88.1 Allergy status to other antibiotic agents

== ENCOUNTER 2025-04-10 09:33 | Emergency (ER) | payer MEDICARE ==
[~2025-04-10] VITALS: Ht 185.4 cm; Wt 123.2 kg
[2025-04-10 10:56] LABS: KETONE, URINE AUTO RFX NEGATIVE (NEGATIVE); LEUKOCYTE ESTERASE UR AUTO RFX NEGATIVE (NEGATIVE); MUCUS, URINE RFX SMALL (NEGATIVE); NITRITE, URINE AUTO RFX NEGATIVE (NEGATIVE); RBC, URINE AUTO RFX 0 /HPF (0-3); SQUAM EPITHELIAL CELL UR AURFX 0 /HPF (0-6); WBC, URINE AUTO RFX 1 /HPF (0-3)
[2025-04-10] MEDS: NS (Normal Saline) 0.9% 1,000 ML IV ONE (10:57)
[2025-04-10 11:08] LABS: BASO % 0.4 % (0.0-1.0); EOS # 0.1 10^3/uL (0.0-0.5); EOS % 2.2 % (0.0-3.0); HEMATOCRIT 41.1 % (42.0-52.0); LYMPH # 1.1 10^3/uL (1.5-5.0); LYMPH % 20.6 % (24.0-44.0); MEAN CORPUSCULAR HEMOGLOBIN 26.3 pg (27.0-33.0); MEAN CORPUSCULAR HGB CONC 31.6 g/dl (32.0-36.5); MEAN CORPUSCULAR VOLUME 83.2 fl (80.0-96.0); MONO # 0.4 10^3/uL (0.0-0.8); MONO % 7.3 % (2.0-8.0); NEUTROPHILS # 3.8 10^3/uL (1.5-8.5); NEUTROPHILS % 69.1 % (36.0-66.0); PLATELET COUNT, AUTOMATED 158 10^3/uL (150-450); RED BLOOD COUNT 4.94 10^6/uL (4.30-6.10); WHITE BLOOD COUNT 5.5 10^3/uL (4.0-10.0)
[2025-04-10 11:36] LABS: LIPASE 157 U/L (12-53)
[2025-04-10 11:37] LABS: ALBUMIN 3.8 G/DL (3.2-5.2); ALKALINE PHOSPHATASE 60 U/L (40-129); ALT/SGPT 15 U/L (7.0-40); AST/SGOT 16 U/L (<34); BILIRUBIN,DIRECT < 0.1 MG/DL (<0.4); BILIRUBIN,TOTAL 0.3 MG/DL (0.3-1.2); BLOOD UREA NITROGEN 16 MG/DL (9-23); CALCIUM LEVEL 9.1 MG/DL (8.3-10.6); CARBON DIOXIDE LEVEL 28 MMOL/L (20-31); CHLORIDE LEVEL 104 MMOL/L (98-107); CREATININE FOR GFR 1.53 MG/DL (0.70-1.30); GLOMERULAR FILTRATION RATE 48.6 (>42); GLUCOSE, FASTING 126 MG/DL (74-106); POTASSIUM SERUM 4.3 MMOL/L (3.5-5.1); SODIUM LEVEL 141 MMOL/L (136-145); TOTAL PROTEIN 6.7 G/DL (5.7-8.2)
[2025-04-10 13:53] VITALS: BP 118/69; TEMP 97.3; O2SAT 98
== END 2025-04-10 13:55 | disposition home or self-care (01) ==
LOC: M ED 09:33
DX: K80.50 Calculus of bile duct without cholangitis or cholecystitis without obstruction (principal); R10.11 Right upper quadrant pain; I10 Essential (primary) hypertension; E78.5 Hyperlipidemia, unspecified; Z88.0 Allergy status to penicillin; Z79.1 Long term (current) use of non-steroidal anti-inflammatories (NSAID); Z79.899 Other long term (current) drug therapy

== ENCOUNTER → 2025-04-10 | Outpatient (CLI) | payer MEDICARE | LOC: M PAL 08:41 | PROVIDERS: ATTEND Physician Assistant | DX: Z53.9 Procedure and treatment not carried out, unspecified reason (principal) ==

== ENCOUNTER → 2025-06-22 | Outpatient (CLI) | payer MEDICARE ==
[~2025-06-22] VITALS: Ht 185.4 cm; Wt 114.8 kg
[~2025-06-22] MED LIST changes: +ONDA-282 PO; +OXYC10TA12 PO
[2025-06-22 10:30] VITALS: BP 148/95; O2SAT 98
== END ==
LOC: M PAL 10:21
PROVIDERS: ATTEND Physician Assistant
DX: Z51.5 Encounter for palliative care (principal); Z66 Do not resuscitate; C74.00 Malignant neoplasm of cortex of unspecified adrenal gland; C77.3 Secondary and unspecified malignant neoplasm of axilla and upper limb lymph nodes; C77.2 Secondary and unspecified malignant neoplasm of intra-abdominal lymph nodes; Z79.891 Long term (current) use of opiate analgesic; Z88.0 Allergy status to penicillin; Z88.1 Allergy status to other antibiotic agents; Z79.899 Other long term (current) drug therapy; Z79.02 Long term (current) use of antithrombotics/antiplatelets; Z79.83 Long term (current) use of bisphosphonates

== ENCOUNTER → 2025-06-26 | Outpatient (CLI) | payer MEDICARE | LOC: M ONCM 10:58 | DX: C64.9 Malignant neoplasm of unspecified kidney, except renal pelvis (principal) ==

== ENCOUNTER 2025-07-01 20:46 | Emergency (ER) | payer MEDICARE ==
[~2025-07-01] VITALS: Ht 185.4 cm; Wt 115.0 kg
[2025-07-01 22:12] LABS: BASO # 0.0 10^3/uL (0.0-0.2); BASO % 0.6 % (0.0-1.0); EOS # 0.2 10^3/uL (0.0-0.5); EOS % 3.4 % (0.0-3.0); LYMPH # 1.2 10^3/uL (1.5-5.0); LYMPH % 22.4 % (24.0-44.0); MONO # 0.5 10^3/uL (0.0-0.8); MONO % 9.7 % (2.0-8.0); NEUTROPHILS # 3.4 10^3/uL (1.5-8.5); NEUTROPHILS % 63.3 % (36.0-66.0); PLATELET COUNT, AUTOMATED 175 10^3/uL (150-450)
[2025-07-01 22:33] LABS: INR 1.0
[2025-07-01] MEDS ORDERED: ISOVUE-370 76% 100 ML VIAL As Ordered ONE (22:39)
[2025-07-02] MEDS: NS 500 ML IV ONE (00:23)
[2025-07-02 00:59] VITALS: BP 134/79; TEMP 98.7; O2SAT 97
== END 2025-07-02 01:00 | disposition home or self-care (01) ==
LOC: M ED 20:46
DX: R04.2 Hemoptysis (principal); Z88.0 Allergy status to penicillin; Z79.1 Long term (current) use of non-steroidal anti-inflammatories (NSAID); Z79.899 Other long term (current) drug therapy; Z79.810 Long term (current) use of selective estrogen receptor modulators (SERMs)
CPT/HCPCS: 71275; 80047; 83735; 85025; 85610; 85730; 86850; 86900; 86901; 96360; 99284; Q9967

== ENCOUNTER → 2025-07-20 | Outpatient (CLI) | payer MEDICARE ==
[~2025-07-20] VITALS: Ht 185.4 cm; Wt 114.4 kg
[2025-07-20 11:12] VITALS: BP 123/83; O2SAT 98
== END ==
LOC: M PAL 10:45
PROVIDERS: ATTEND Physician Assistant
DX: Z51.5 Encounter for palliative care (principal); Z66 Do not resuscitate; C64.9 Malignant neoplasm of unspecified kidney, except renal pelvis; C78.1 Secondary malignant neoplasm of mediastinum; C79.70 Secondary malignant neoplasm of unspecified adrenal gland; C77.2 Secondary and unspecified malignant neoplasm of intra-abdominal lymph nodes; Z79.891 Long term (current) use of opiate analgesic; Z88.1 Allergy status to other antibiotic agents; Z88.0 Allergy status to penicillin; Z79.899 Other long term (current) drug therapy; Z79.83 Long term (current) use of bisphosphonates

== ENCOUNTER → 2025-08-03 | Outpatient (CLI) | payer MEDICARE ==
[~2025-08-03] VITALS: Ht 185.4 cm; Wt 111.0 kg
[~2025-08-03] MED LIST changes: +HYDR2TAB2 PO; +MUCI30TA5 PO; +NARC1SPR NARES; +ONDA-284 PO
[2025-08-03 09:37] VITALS: BP 137/82; O2SAT 97
== END ==
LOC: M PAL 09:22
PROVIDERS: ATTEND Physician Assistant
DX: Z51.5 Encounter for palliative care (principal); Z66 Do not resuscitate; C64.9 Malignant neoplasm of unspecified kidney, except renal pelvis; C77.2 Secondary and unspecified malignant neoplasm of intra-abdominal lymph nodes; Z79.891 Long term (current) use of opiate analgesic; Z88.0 Allergy status to penicillin; Z88.1 Allergy status to other antibiotic agents